=== PATIENT | female | born 1990 | race Hispanic/Latino ===

== ENCOUNTER 2021-04-28 10:26 | Emergency (ER) | payer OTHER ==
[~2021-04-28] VITALS: Ht 149.9 cm; Wt 65.8 kg
== END 2021-04-28 12:01 | disposition home or self-care (01) ==
LOC: FSED 11:02
DX: O20.9 Hemorrhage in early pregnancy, unspecified (principal); O99.011 Anemia complicating pregnancy, first trimester; U07.1 COVID-19; R55 Syncope and collapse; M54.50 Low back pain, unspecified
CPT/HCPCS: 80053; 81003; 81025; 85025; 93005; 99283